=== PATIENT | female | born 1990 | race Caucasian/White ===

== ENCOUNTER 2016-09-10 05:56 | Inpatient (IN) ==
[2016-09-10] MEDS ORDERED: PITOCIN 30 UNITS/LR 500 ML IV SCH (06:00)
[2016-09-10] MEDS ORDERED: ZOFRAN IV PRN (06:00)
[2016-09-10] MEDS ORDERED: PEPCID PO PRN (06:00)
[2016-09-10] MEDS ORDERED: TYLENOL PO PRN (06:00)
[2016-09-10] MEDS ORDERED: SODIUM CHLORIDE 0.9% INJ SCH (06:00)
[2016-09-10] MEDS ORDERED: STADOL IV PRN (06:00)
[2016-09-10] MEDS ORDERED: KEFZOL 1 GM/D5W 50 ML IV PRN (06:00)
[2016-09-10] MEDS ORDERED: PEPCID IV PRN (06:00)
[2016-09-10] MEDS: LR 1,000 ML IV SCH ×3 (06:28→07:42)
[2016-09-10 06:40] LABS: MANUAL DIFF NEEDED? NO
[2016-09-10 06:40] LABS: URINE SOURCE VOIDED
[2016-09-10 06:43] LABS: BASO% 0.2 % (0.0-0.8); EOS# 0.06 X1000 (0.0-0.7); EOS% 0.5 % (0.0-10.0); HEMATOCRIT 28.9 % (37.0-47.0); HEMOGLOBIN 8.8 g/dL (12.0-16.0); IMM GRAN# 0.11 X1000 (0.0-0.04); LYMPH# 1.67 X1000 (1.2-3.4); LYMPH% 14.5 % (20.5-51.1); MCH 23.1 PG (27-31); MCHC 30.4 g/dL (33-37); MCV 75.9 FL (81-99); MONO# 1.03 X1000 (0.11-0.59); MONO% 8.9 % (1.7-9.3); MPV 11.1 FL (7.4-10.4); NEUT% 74.9 % (42.2-75.2); PLT 266 X1000 (130-400); RBC 3.81 XMIL (4.2-5.4)
[2016-09-10 06:48] LABS: BILIRUBIN URINE NEGATIVE (NEGATIVE); BLOOD URINE TRACE (NEGATIVE); CLARITY SL. CLOUDY (CLEAR); COLOR YELLOW; GLUCOSE URINE NEGATIVE (NEGATIVE); LEUKOCYTES URINE 2+ (NEGATIVE); NITRITE URINE NEGATIVE (NEGATIVE); PROTEIN URINE TRACE mg/dL (NEGATIVE); SP GRAVITY URINE 1.015; UROBILINOGEN URINE NORMAL
[2016-09-10] MEDS ORDERED: XYLOCAINE-MPF 1% ONE (07:10)
[2016-09-10] MEDS ORDERED: XYLOCAINE-MPF 1% 5 ML ONE (07:10)
[2016-09-10] MEDS ORDERED: MINERAL OIL ONE (07:11)
[2016-09-10] MEDS ORDERED: FENTANYL-BUPIV-NS 2 MCG-0.1% 200 ML ONE (07:11)
[2016-09-10] MEDS ORDERED: FENTANYL-BUPIV-NS 2 MCG-0.1% 200 ML EPIDURAL PRN (07:37)
[2016-09-10] MEDS ORDERED: XYLOCAINE-MPF 1% INJ ONE (07:45)
[2016-09-10] MEDS ORDERED: NORCO-5 PO PRN (11:12)
[2016-09-10] MEDS ORDERED: BOOSTRIX VACCINE IM ONE (11:12)
[2016-09-10] MEDS ORDERED: BENADRYL PO PRN (11:12)
[2016-09-10] MEDS ORDERED: M-M-R II VACCINE SUBQ ONE (11:12)
[2016-09-10] MEDS ORDERED: HYDROXYZINE PO PRN (11:12)
[2016-09-10] MEDS ORDERED: PITOCIN IM PRN (11:12)
[2016-09-10] MEDS ORDERED: XYLOCAINE-MPF 1% INJ PRN (11:12)
[2016-09-10] MEDS ORDERED: MINERAL OIL MISC PRN (11:12)
[2016-09-10] MEDS ORDERED: PITOCIN 30 UNITS/LR 500 ML IV ONE (11:12)
[2016-09-10] MEDS ORDERED: PERI MEDS (DERMOPLAST/NUPERCAINAL/TUCKS) MISC PRN (11:12)
[2016-09-10] MEDS ORDERED: CYTOTEC PO PRN (11:12)
[2016-09-10] MEDS ORDERED: HYDROXYZINE IM PRN (11:12)
[2016-09-10] MEDS ORDERED: AMBIEN PO PRN (11:12)
[2016-09-10] MEDS ORDERED: BENADRYL IV PRN (11:12)
[2016-09-10] MEDS ORDERED: PITOCIN 20 UNITS/LR 1,000 ML IV SCH (11:15)
[2016-09-10] MEDS: MOTRIN PO PRN (11:45)
[2016-09-10] MEDS: NORCO-10 PO PRN ×3 (13:07→19:49)
[2016-09-10] MEDS: PERICOLACE PO SCH ×2 (19:49→20:22)
[2016-09-11] MEDS: MOTRIN PO PRN ×3 (00:32→18:34)
[2016-09-11] MEDS: NORCO-10 PO PRN ×6 (00:32→21:33)
[2016-09-11 06:11] LABS: HEMOGLOBIN 7.8 g/dL (12.0-16.0); MCH 23.1 PG (27-31); MCV 76.9 FL (81-99); MPV 11.3 FL (7.4-10.4); RBC 3.38 XMIL (4.2-5.4)
--- NOTE | 2016-09-11 09:44 | PROGRESS NOTE ---
DATE: 09/11/2016 REASON: day 1. SUBJECTIVE: Ms. Kennedy complains of pelvic pain. Has been voiding, moving around, tolerating p.o., and is doing okay. OBJECTIVE: Vital signs: Are stable. She is afebrile. General: She is alert and cooperative. She is in no distress. Neck: Supple. Lungs: Clear. Heart: Regular sinus rhythm. Abdomen: Soft, slightly distended. Uterus is firm. LAB: Hemoglobin 7.8. PLAN: Expect routine .
[2016-09-11 20:34] VITALS: BP 119/69
[2016-09-11] MEDS: PERICOLACE PO SCH (20:35)
[2016-09-12] MEDS: NORCO-10 PO PRN (00:15)
[2016-09-12] MEDS: MOTRIN PO PRN (02:22)
[2016-09-12] MEDS ORDERED: PERCOCET-5 PO PRN (04:15)
[2016-09-12] MEDS ORDERED: PERCOCET-10 PO PRN (04:15)
== END 2016-09-12 10:30 | disposition home or self-care (01) | DRG 775 ==
LOC: P.LD 05:56 → P.WC 14:35
PROVIDERS: ADMIT Obstetrics & Gynecology; ATTEND Obstetrics & Gynecology
PROC: 10907ZC Drainage of Amniotic Fluid, Therapeutic from Products of Conception, Via Natural or Artificial Opening (ICD-10-PCS; 2016-09-10)
PROC: 3E033VJ Introduction of Other Hormone into Peripheral Vein, Percutaneous Approach (ICD-10-PCS; 2016-09-10)
PROC: 10E0XZZ Delivery of Products of Conception, External Approach (ICD-10-PCS; principal; 2016-09-10 06:00)
DX: O69.1XX0 Labor and delivery complicated by cord around neck, with compression, not applicable or unspecified (principal); Z37.0 Single live birth; Z3A.39 39 weeks gestation of pregnancy
CPT/HCPCS: 36415; 59025; 81003; 85025; 85027; 86592; J0595; J2405; J2590; J7120

== ENCOUNTER 2016-09-12 18:04 | Emergency (ER) ==
--- NOTE | 2016-09-12 18:48 | PROVIDER DOCUMENTATION ---
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 PT STATES SHE IS RETAINING WATER IN HER RT LOWER EXTREMITY. Location of Pain/Injury: reports: lower extremity Pain Radiation: reports: no radiation Quality of Pain: reports: aching Severity: reports: moderate Onset/Duration: reports: 24 hours ago Timing: reports: still present Context/Activities at Onset: reports: light activity Modifying Factors: improves with: nothing Similar Symptoms Previously?: No Recently seen or treated by another doctor?: No <Omer Morales - Last Filed: 09/12/16 21:00> - General Chief Complaint: Extremity Pain Stated Complaint: RIGHT SIDE LEG SWOLLENING Time Seen by Provider: 09/12/16 18:40 Allergies/Adverse Reactions: Patient Allergies Allergy/AdvReac Type Severity Reaction Status Date / Time No Known Allergies Allergy Verified 08/11/16 18:10 Home Medications: Home Medication List Medication Instructions Recorded Confirmed Last Taken Type Vit No.78/Iron/FA 1 tab PO DAILY 08/15/16 09/10/16 09/09/16 09:00 History [Prenatabs FA Tablet] Iron,Fm,Ps/Folic/B,C18/L.casei 1 each PO BID #60 capsule 08/17/16 09/10/1609/09 09:00 Rx [Fusion Plus Capsule] Hydrocodone/APAP 5 mg/325 mg 1 each PO Q6H PRN PRN #14 tablet 09/12/16 Rx [Winder-5] Ibuprofen [Motrin] 800 mg PO Q8H PRN PRN #30 tablet 09/12/16 09/12/16 Rx Review of Systems - Adult - REVIEW OF SYSTEMS - ADULT Constitutional: denies: chills, fever Eyes: reports: no symptoms reported Ears, Nose, Mouth & Throat: reports: no symptoms reported Cardiovascular: denies: chest pain, palpitations, syncope Respiratory: denies: cough, shortness of breath, wheezing Gastrointestinal: denies: abdominal pain, diarrhea, nausea, vomiting Genitourinary: reports: no symptoms reported Musculoskeletal: reports: muscle aches (RT LEG). denies: back pain, neck pain Integumentary: reports: no symptoms reported Neurological: denies: dizziness/vertigo, headache/migraines, syncope Psychiatric: reports: no symptoms reported Endocrine: reports: no symptoms reported Hematologic/Lymphatic: reports: no symptoms reported Allergic/Immunologic: reports: no symptoms reported All Other Systems: Reviewed and Negative <AndrewOmer worrell - Last Filed: 09/12/16 21:00> Past History - Adult - PAST MEDICAL HISTORY-ADULT Review of Records: reports: Nursing Assessment Review, Medications Reviewed - PRIOR SURGERIES/PROCEDURES Surgical/Procedure History: reports: none - PRIOR HOSPITALIZATIONS Prior Hospitalizations: reports: for other non-related - IMMUNIZATION STATUS Childhood Immunizations: See Nurse Assessment Flu Vaccine: See Nurse Assessment - FAMILY HISTORY Family History: reviewed, not pertinent - SOCIAL HISTORY Smoking: quit greater than 1 year, cigarettes Substance Use: denies Alcohol Use Frequency: never Living Situation: family <AndrewOmer - Last Filed: 09/12/16 21:00> Physical Exam-General - CONSTITUTIONAL General Appearance: alert, mild distress - EYES Eyes: PERRL/EOMI, pink conjunctivae - HEAD, EARS, NOSE, MOUTH & THROAT HENMT: normocephalic/atraumatic, moist mucous membranes - NECK Neck: non-tender, full range of motion, supple - RESPIRATORY Respiratory: chest non-tender, lungs clear, normal breath sounds - CARDIOVASCULAR Cardiovascular: normal peripheral pulses, regular rate, rhythm - GASTROINTESTINAL (ABDOMEN) Abdominal Exam: normal bowel sounds, non tender, soft - LYMPHATIC Lymphatic: no adenopathy - MUSCULOSKELETAL Back Exam: normal inspection, no CVA tenderness, no vertebral tenderness Extremity: pedal edema, tenderness (RT LEG FROM BUTTOCKS DOWN TO FOOT.) - SKIN Integumentary: normal color, normal turgor, warm/dry - NEUROLOGIC Neurologic: grossly normal - PSYCHIATRIC Psych/Mental Status: oriented x 3 <AndrewOmer worrell - Last Filed: 09/12/16 21:00> Progress - PLAN OF CARE/RESULTS Progress/Plan/Lab Results: Laboratory Tests 09/12/16 19:20 D-Dimer 2.17 H Orders Category Date Time Status D-DIMER PL [COAG] Stat Lab 09/12/16 19:20 Completed Venous U/S Right Leg [CV] Stat Ther 09/12/16 18:33 Ordered Vital Signs - 24 hr 09/12/16 18:15 Temperature 98.4 F Pulse Rate 78 Respiratory 18 Rate Blood Pressure 124/80 O2 Sat by Pulse 100 Oximetry - ULTRASOUND (By Radiology) 1 US Study: other (VASCULAR) US Results: NO CLOTS <Omer Morales - Last Filed: 09/12/16 21:00> Departure - Departure Time of Disposition Order: 20:57 Certified Medical Emergency: Emergent <Indio Duvall - Last Filed: 09/12/16 20:57> - Departure Time of Disposition Order: 21:00 Certified Medical Emergency: Emergent <Omer Morales - Last Filed: 09/12/16 21:00> - Departure DIAGNOSIS: Radicular pain of right lower extremity Disposition: HOME 01 Condition: Stable Additional Instructions: FOLLOW UP WITH OB DOCTOR. ED Follow Up Instructions: You have been treated by a care provider in the Emergency Department. These instructions are being provided to you so you can have an understanding of how to care for yourself upon discharge. Upon discharge from the Emergency Department, you are responsible for making arrangements for follow-up care by a physician of your choice. Take all prescribed medications as directed. Return to the Emergency Department immediately for any new or worsening symptoms. You may call the Physician Referral phone number at [phone] to obtain a list of Physicians who are taking new patients. Referrals: Estiven Pereira [Primary Care Provider] - Attestation - Scribe Verification/Attestation Scribe:: Omer Morales Acting as Scribe for:: Indio Duvall Scribe documention review:: This chart was documented by a scribe and accurately reflects the service the provider performed and the decisions made by the provider. <Omer Morales - Last Filed: 09/12/16 21:00> Physician Attestation
[2016-09-12 21:19] VITALS: BP 112/73
--- NOTE | 2016-09-15 07:22 | Extremity Venous Study ---
PROCEDURE NAME: Venous U/S Right Leg - 09/12/2016 RIGHT LOWER EXTREMITY DOPPLER VENOUS ULTRASOUND: FINDINGS: The deep veins of the right lower extremity demonstrate flow and compressibility. There are no filling defects identified. IMPRESSION: No evidence of right lower extremity deep venous thrombosis.
== END 2016-09-12 21:20 | disposition home or self-care (01) ==
LOC: P.ED 18:04
DX: O90.89 Other complications of the puerperium, not elsewhere classified (principal); M54.10 Radiculopathy, site unspecified; M79.604 Pain in right leg; M79.1 Myalgia; R22.41 Localized swelling, mass and lump, right lower limb; Z87.891 Personal history of nicotine dependence
CPT/HCPCS: 85379; 93971; 99283